=== PATIENT | male | born 1980 | race Caucasian/White ===

== ENCOUNTER → 2024-03-14 12:03 | Outpatient (REF) | payer OTHER, SELFPAY | LOC: RAD 12:03 | PROVIDERS: ATTENDING PHYSICIAN Student in an Organized Health Care Education/Training Program; FAMILY PHYSICIAN Family Medicine | DX: M79.671 Pain in right foot (principal); T14.8XXA Other injury of unspecified body region, initial encounter | CPT/HCPCS: 73630 ==